=== PATIENT | female | born 1960 | race Caucasian/White ===

== ENCOUNTER 2017-01-11 09:22 | Emergency (ER) | payer MEDICARE, MEDICAID ==
[~2017-01-11] VITALS: Ht 160 cm; Wt 50.0 kg
[~2017-01-11 09:22] MED LIST: BL ADULT ASA81 MG PO; LORTAB5 OR; NO HOME MEDS; ONDANSETRON4 MG OR; ZOFRAN4 MG/TAB PO
[2017-01-11 11:26] VITALS: BP 171/81
== END 2017-01-11 11:33 | disposition home or self-care (01) ==
LOC: ED 09:22
DX: S00.83XA Contusion of other part of head, initial encounter (principal); M06.9 Rheumatoid arthritis, unspecified; G35 Multiple sclerosis; B19.20 Unspecified viral hepatitis C without hepatic coma; I25.10 Atherosclerotic heart disease of native coronary artery without angina pectoris; I25.2 Old myocardial infarction; F17.210 Nicotine dependence, cigarettes, uncomplicated; W22.8XXA Striking against or struck by other objects, initial encounter; Y92.512 Supermarket, store or market as the place of occurrence of the external cause

== ENCOUNTER 2017-07-13 19:58 | Emergency (ER) | payer MEDICARE, MEDICAID ==
[~2017-07-13] VITALS: Ht 160 cm; Wt 55.0 kg
[2017-07-13 20:51] LABS: HEMATOCRIT 34.6 % (37.0-47.0); HEMOGLOBIN 11.3 g/dl (12.0-16.0); IMMATURE GRANULOCYTES 0.4 % (0.0-1.0); MEAN CORPUSCULAR HGB 21.6 pG CALC (26.0-32.0); MEAN CORPUSCULAR HGB CONC 32.7 g/L CALC (32.0-36.0); NEUT# 4.98 thou/uL (2.00-7.15); RED BLOOD COUNT 5.24 mill/uL (4.20-5.60); RED CELL DISTRI WIDTH 15.8 % (11.5-15.5)
[2017-07-13 20:53] LABS: URINE BILIRUBIN - DIPSTICK NEGATIVE (NEGATIVE); URINE BLOOD DIPSTICK NEGATIVE (NEGATIVE); URINE COLOR YELLOW; URINE GLUCOSE - DIPSTICK NEGATIVE (NEGATIVE); URINE KETONE NEGATIVE (NEGATIVE); URINE LEUK ESTERASE NEGATIVE (NEGATIVE); URINE NITRITE - DIPSTICK NEGATIVE (Negative); URINE PROTEIN - DIPSTICK NEGATIVE (NEG-TRACE); URINE SPECIFIC GRAVITY <=1.005; URINE UROBILINOGEN - DIPSTICK 0.2 E.U./dL (0.2)
[2017-07-13 21:12] LABS: URINE CLARITY CLEAR
[2017-07-13 21:36] LABS: ALBUMIN 4.8 g/dL (3.2-5.0); ALKALINE PHOSPHATASE 87 u/l (38-126); AMYLASE 66 u/l (30-110); BILIRUBIN, TOTAL 0.7 mg/dL (0.0-1.4); BUN 12 mg/dL (7-17); BUN/CREATININE RATIO 18 (12-20 (CALC)); CALCIUM 9.9 mg/dL (8.4-10.2); CARBON DIOXIDE 25 mmol/l (22-30); CHLORIDE 105 mmol/l (95-108); CREATININE 0.7 mg/dL (0.5-1.0); GFR > 60 ML/MIN (>=60 (CALC)); GFR FOR AFR.AMER. > 60 ML/MIN (>=60 (CALC)); GLUCOSE 107 mg/dL (65-105); LIPASE 68 u/l (23-300); SGOT/AST 24 u/l (14-36); SGPT/ALT 24 u/l (9-52); SODIUM 140 mmol/l (137-146); TOTAL PROTEIN 8.1 g/dL (6.3-8.2)
[2017-07-13 21:37] LABS: ANION GAP 14 (6-22 (CALC))
[2017-07-13 21:47] LABS: MYOGLOBIN 32 ng/mL (0 - 62)
[2017-07-14] MEDS ORDERED: ULTRAM50 M1 PO (00:14)
[2017-07-14 00:46] VITALS: BP 148/72
== END 2017-07-14 00:43 | disposition home or self-care (01) ==
LOC: ED 19:58
PROVIDERS: Emergency Medicine
DX: R10.11 Right upper quadrant pain (principal); K44.9 Diaphragmatic hernia without obstruction or gangrene; M25.511 Pain in right shoulder
CPT/HCPCS: Q9967

== ENCOUNTER 2019-10-20 | Emergency (ER) | payer MEDICARE, MEDICAID ==
[~2019-10-20] MED LIST changes: +ASPIRIN 8181 MG PO; -BL ADULT ASA81 MG PO; +ULTRAM50 M1 PO
== END 2019-10-20 12:30 | disposition home or self-care (01) ==
DX: S90.31XA Contusion of right foot, initial encounter (principal); I10 Essential (primary) hypertension; W18.39XA Other fall on same level, initial encounter; Y92.003 Bedroom of unspecified non-institutional (private) residence as the place of occurrence of the external cause

== ENCOUNTER 2020-10-07 12:37 | Observation (INO) | payer MEDICARE, MEDICAID ==
[~2020-10-07] VITALS: Ht 160 cm; Wt 65.0 kg
[2020-10-07] VITALS (13 sets, daily range): BP systolic 96–157; BP diastolic 61–106
[2020-10-07 13:09] LABS: GFR > 60 ML/MIN (>=60 (CALC)); GFR FOR AFR.AMER. > 60 ML/MIN (>=60 (CALC))
[2020-10-07 13:10] LABS: HEMATOCRIT 34.8 % (37.0-47.0); HEMOGLOBIN 10.9 g/dl (12.0-16.0); IMMATURE GRANULOCYTES 0.5 % (0.0-5.0); MEAN CELL VOLUME 66.8 fL CALC (80.0-100.0); MEAN CORPUSCULAR HGB 20.9 pG CALC (26.0-32.0); MEAN CORPUSCULAR HGB CONC 31.3 g/dL CAL (32.0-36.0); NEUT# 10.23 thou/uL (2.00-7.15); RED BLOOD COUNT 5.21 mill/uL (4.20-5.60); RED CELL DISTRI WIDTH 17.1 % (11.5-15.5)
[2020-10-07 13:22] LABS: ALBUMIN 4.4 g/dL (3.2-5.0); ALKALINE PHOSPHATASE 73 u/l (38-126); ANION GAP 14 (6-22 (CALC)); BILIRUBIN, TOTAL 0.7 mg/dL (0.0-1.4); BUN 17 mg/dL (7-17); BUN/CREATININE RATIO 26 (12-20 (CALC)); CARBON DIOXIDE 22 mmol/l (22-30); CHLORIDE 101 mmol/l (95-108); CREATININE 0.7 mg/dL (0.5-1.0); GFR > 60 ML/MIN (>=60 (CALC)); GFR FOR AFR.AMER. > 60 ML/MIN (>=60 (CALC)); POTASSIUM 3.7 mmol/l (3.5-5.1); SGOT/AST 29 u/l (14-36); SODIUM 133 mmol/l (137-146); TOTAL PROTEIN 7.6 g/dL (6.3-8.2)
[2020-10-07 13:30] LABS: ACT PARTIAL THROMBO TIME 21.4 SECONDS (20.0-32.5); PROTHROMBIN TIME 10.1 SECONDS (9.0-12.5)
[2020-10-07 15:59] LABS: URINE BILIRUBIN - DIPSTICK NEGATIVE (NEGATIVE); URINE BLOOD DIPSTICK NEGATIVE (NEGATIVE); URINE COLOR YELLOW; URINE GLUCOSE - DIPSTICK NEGATIVE (NEGATIVE); URINE KETONE NEGATIVE (NEGATIVE); URINE LEUK ESTERASE NEGATIVE (NEGATIVE); URINE NITRITE - DIPSTICK NEGATIVE (Negative); URINE PROTEIN - DIPSTICK NEGATIVE (NEG-TRACE); URINE SPECIFIC GRAVITY <=1.005; URINE UROBILINOGEN - DIPSTICK 0.2 E.U./dL (0.2)
[2020-10-08] VITALS (8 sets, daily range): BP systolic 93–116; BP diastolic 56–70
[2020-10-08 06:00] LABS: HEMATOCRIT 32.6 % (37.0-47.0); HEMOGLOBIN 10.2 g/dl (12.0-16.0); IMMATURE GRANULOCYTES 0.4 % (0.0-5.0); MEAN CELL VOLUME 66.8 fL CALC (80.0-100.0); MEAN CORPUSCULAR HGB 20.9 pG CALC (26.0-32.0); MEAN CORPUSCULAR HGB CONC 31.3 g/dL CAL (32.0-36.0); NEUT# 6.15 thou/uL (2.00-7.15); RED BLOOD COUNT 4.88 mill/uL (4.20-5.60); RED CELL DISTRI WIDTH 16.4 % (11.5-15.5)
[2020-10-08 06:08] LABS: ALBUMIN 3.7 g/dL (3.2-5.0); ALKALINE PHOSPHATASE 67 u/l (38-126); ANION GAP 11 (6-22 (CALC)); BILIRUBIN, TOTAL 0.7 mg/dL (0.0-1.4); BUN 10 mg/dL (7-17); BUN/CREATININE RATIO 16 (12-20 (CALC)); CALCULATED LDLCHOLESTEROL 85 mg/dL (62-129 (CALC)); CARBON DIOXIDE 25 mmol/l (22-30); CHLORIDE 104 mmol/l (95-108); CHOLESTEROL HDL RATIO 3.5 (<4.4 (CALC)); CREATININE 0.6 mg/dL (0.5-1.0); GFR > 60 ML/MIN (>=60 (CALC)); GFR FOR AFR.AMER. > 60 ML/MIN (>=60 (CALC)); HDL CHOLESTEROL 45 mg/dL (>=40); MAGNESIUM 2.3 mg/dL (1.6-2.3); POTASSIUM 3.9 mmol/l (3.5-5.1); SGOT/AST 19 u/l (14-36); SODIUM 135 mmol/l (137-146); TOTAL CHOLESTEROL 156 mg/dl (0-199); TOTAL PROTEIN 6.4 g/dL (6.3-8.2); TOTAL TRIGLYCERIDES 130 mg/dl (30-149); VLDL CHOLESTROL 26 mg/dl (1-41 (CALC))
== END 2020-10-08 11:30 | disposition home or self-care (01) ==
LOC: ED 12:37 → ED-I 13:40 → ED 13:51 → ICU 13:52
PROVIDERS: Nurse Practitioner; Student in an Organized Health Care Education/Training Program; ADMIT Internal Medicine; ATTEND Internal Medicine
DX: R42 Dizziness and giddiness (principal); G35 Multiple sclerosis; I10 Essential (primary) hypertension; G93.89 Other specified disorders of brain; M19.90 Unspecified osteoarthritis, unspecified site; D64.9 Anemia, unspecified; Z86.19 Personal history of other infectious and parasitic diseases; Z85.43 Personal history of malignant neoplasm of ovary; Z20.822 Contact with and (suspected) exposure to COVID-19
CPT/HCPCS: J1650; Q9967

== ENCOUNTER 2021-05-01 16:47 | Emergency (ER) | payer MEDICARE, MEDICAID ==
[~2021-05-01] VITALS: Ht 157.5 cm; Wt 58.6 kg
[2021-05-01 18:05] LABS: HEMATOCRIT 38.1 % (37.0-47.0); HEMOGLOBIN 12.3 g/dl (12.0-16.0); IMMATURE GRANULOCYTES 0.1 % (0.0-5.0); MEAN CELL VOLUME 67.8 fL CALC (80.0-100.0); MEAN CORPUSCULAR HGB 21.9 pG CALC (26.0-32.0); MEAN CORPUSCULAR HGB CONC 32.3 g/dL CAL (32.0-36.0); NEUT# 3.93 thou/uL (2.00-7.15); RED BLOOD COUNT 5.62 mill/uL (4.20-5.60); RED CELL DISTRI WIDTH 17.2 % (11.5-15.5)
[2021-05-01 18:06] LABS: URINE BILIRUBIN - DIPSTICK NEGATIVE (NEGATIVE); URINE BLOOD DIPSTICK NEGATIVE (NEGATIVE); URINE COLOR YELLOW; URINE GLUCOSE - DIPSTICK NEGATIVE (NEGATIVE); URINE KETONE NEGATIVE (NEGATIVE); URINE LEUK ESTERASE NEGATIVE (NEGATIVE); URINE PH 6.5 (4.5-8.0); URINE PROTEIN - DIPSTICK NEGATIVE (NEG-TRACE); URINE SPECIFIC GRAVITY <=1.005; URINE UROBILINOGEN - DIPSTICK 0.2 E.U./dL (0.2)
[2021-05-01 18:10] LABS: URINE NITRITE - DIPSTICK NEGATIVE (Negative)
[2021-05-01 18:21] LABS: ALKALINE PHOSPHATASE 78 u/l (38-126); AMYLASE 83 u/l (30-110); ANION GAP 13 (6-22 (CALC)); BUN 14 mg/dL (7-17); BUN/CREATININE RATIO 19 (12-20 (CALC)); CARBON DIOXIDE 28 mmol/l (22-30); CHLORIDE 101 mmol/l (95-108); CREATININE 0.8 mg/dL (0.5-1.0); GFR > 60 ML/MIN (>=60 (CALC)); GFR FOR AFR.AMER. > 60 ML/MIN (>=60 (CALC)); LIPASE 84 u/l (23-300); POTASSIUM 3.7 mmol/l (3.5-5.1); SGOT/AST 25 u/l (14-36); SODIUM 138 mmol/l (137-146)
[2021-05-01 18:22] LABS: ALBUMIN 4.8 g/dL (3.2-5.0); BILIRUBIN, TOTAL 0.4 mg/dL (0.0-1.4); TOTAL PROTEIN 8.7 g/dL (6.3-8.2)
[2021-05-01 18:33] LABS: MYOGLOBIN 23 ng/mL (0 - 62)
[2021-05-01 19:51] VITALS: BP 138/78
[2021-06-22] MEDS ORDERED: CURCUMIN PO (10:42)
[2021-06-22] MEDS ORDERED: PAPAYA ENZY PO (10:43)
== END 2021-05-01 19:56 | disposition home or self-care (01) ==
LOC: ED 16:47
PROVIDERS: Emergency Medicine
DX: R10.9 Unspecified abdominal pain (principal); G35 Multiple sclerosis; I25.2 Old myocardial infarction; B19.20 Unspecified viral hepatitis C without hepatic coma; F17.200 Nicotine dependence, unspecified, uncomplicated; Z85.43 Personal history of malignant neoplasm of ovary; Z20.822 Contact with and (suspected) exposure to COVID-19
CPT/HCPCS: Q9967

== ENCOUNTER 2023-02-25 08:09 | Emergency (ER) | payer MEDICARE, MEDICAID ==
[~2023-02-25] VITALS: Ht 157.5 cm; Wt 61.0 kg
[~2023-02-25 08:09] MED LIST changes: +CURCUMIN PO; +PAPAYA ENZY PO
[2023-02-25 08:16] VITALS: BP 146/86
[2023-02-25 08:30] VITALS: BP 133/85
[2023-02-25 08:49] LABS: BASO% 1.2 % (0-3); EOS% 2.6 % (0-8); HEMATOCRIT 35.6 % (37.0-47.0); HEMOGLOBIN 11.5 g/dl (12.0-16.0); IMMATURE GRANULOCYTES 0.3 % (0.0-5.0); LYMPH% 26.5 % (15-41); MEAN CELL VOLUME 66.5 fL CALC (80.0-100.0); MEAN CORPUSCULAR HGB 21.5 pG CALC (26.0-32.0); MEAN CORPUSCULAR HGB CONC 32.3 g/dL CAL (32.0-36.0); MONO% 7.6 % (2-13); NEUT# 4.08 thou/uL (2.00-7.15); NEUT% 61.8 % (42-76); RED BLOOD COUNT 5.35 mill/uL (4.20-5.60); RED CELL DISTRI WIDTH 16.5 % (11.5-15.5)
[2023-02-25 09:00] VITALS: BP 131/83
[2023-02-25 09:08] LABS: ALBUMIN 4.7 g/dL (3.2-5.0); ALKALINE PHOSPHATASE 92 u/l (38-126); ANION GAP 14 (6-22 (CALC)); BILIRUBIN, TOTAL 0.5 mg/dL (0.02-1.3); BUN 15 mg/dL (8-23); BUN/CREATININE RATIO 21 (12-20 (CALC)); CARBON DIOXIDE 23 mmol/l (22-30); CHLORIDE 105 mmol/l (95-108); CREATININE 0.7 mg/dL (0.5-1.0); GFR FOR AFR.AMER. > 60 ML/MIN (>=60 (CALC)); GFR OTHER RACES > 60 ML/MIN (>=60 (CALC)); POTASSIUM 3.8 mmol/l (3.5-5.1); SGOT/AST 27 u/l (9-36); SODIUM 138 mmol/l (137-146)
[2023-02-25 09:30] VITALS: BP 134/90
[2023-02-25 10:00] VITALS: BP 136/109
[2023-02-25 10:30] VITALS: BP 136/109
== END 2023-02-25 10:20 | disposition left against medical advice (07) ==
LOC: ED 08:09
PROVIDERS: Family Medicine
DX: R07.9 Chest pain, unspecified (principal); G35 Multiple sclerosis; I25.2 Old myocardial infarction; F17.210 Nicotine dependence, cigarettes, uncomplicated; Z53.29 Procedure and treatment not carried out because of patient's decision for other reasons

== ENCOUNTER 2024-05-26 20:58 | Emergency (ER) | payer MEDICARE, MEDICAID ==
[~2024-05-26] VITALS: Ht 157.5 cm; Wt 51.0 kg
[~2024-05-26 20:58] MED LIST changes: +FUROSEMIDE20 MG PO; +IS-ZC 50 50 MG1 TAB; +VITAMIN D-32000 UNI1; +[UNRECOGNIZED DRUG - OTHER]; +[UNRECOGNIZED DRUG - OTHER]
[2024-05-26] MEDS ORDERED: SODIUM CHLORIDE 0.9% 1,000 ML IV STA (21:12)
[2024-05-26] MEDS ORDERED: PROMETHAZINE HCL 25 MG/ML AMP IV ONE (21:15)
[2024-05-26] MEDS ORDERED: HYDROcodone POLISTIREX/CHLORPH 5 ML UDC PO ONE (21:15)
[2024-05-26 21:35] LABS: BASO% 0.4 % (0-3); EOS% 0.8 % (0-8); HEMATOCRIT 33.4 % (37.0-47.0); IMMATURE GRANULOCYTES 0.2 % (0.0-5.0); LYMPH% 12.2 % (15-41); MEAN CELL VOLUME 66.4 fL CALC (80.0-100.0); MEAN CORPUSCULAR HGB 21.9 pG CALC (26.0-32.0); MEAN CORPUSCULAR HGB CONC 32.9 g/dL CAL (32.0-36.0); MONO% 5.6 % (2-13); NEUT# 11.43 thou/uL (2.00-7.15); NEUT% 80.8 % (42-76); RED BLOOD COUNT 5.03 mill/uL (4.20-5.60); RED CELL DISTRI WIDTH 16.6 % (11.5-15.5)
[2024-05-26 21:43] LABS: ALBUMIN 4.4 g/dL (3.2-5.0); BILIRUBIN, TOTAL 0.6 mg/dL (0.02-1.3); CREATININE 0.6 mg/dL (0.5-1.0); TOTAL PROTEIN 7.4 g/dL (6.3-8.2)
[2024-05-26 21:44] LABS: POTASSIUM 3.5 mmol/l (3.5-5.1)
[2024-05-26 22:53] LABS: URINE BILIRUBIN - DIPSTICK Negative (NEGATIVE); URINE BLOOD DIPSTICK Trace-intact (NEGATIVE); URINE GLUCOSE - DIPSTICK Negative (NEGATIVE); URINE KETONE Negative (NEGATIVE); URINE LEUK ESTERASE Negative (NEGATIVE); URINE NITRITE - DIPSTICK Negative (Negative); URINE PH 5.5 (4.5-8.0); URINE PROTEIN - DIPSTICK Negative (NEG-TRACE); URINE UROBILINOGEN - DIPSTICK 0.2 E.U./dL (0.2)
[2024-05-26 22:55] LABS: URINE COLOR Yellow
[2024-05-26] MEDS ORDERED: AZITHROMYCIN 300mg/15mL BTL (100mg/5mL) PO ONE (23:10)
[2024-05-26] MEDS ORDERED: AZITHROMYC200 MG/5 M PO (23:11)
[2024-05-26 23:16] VITALS: BP 145/94
[2024-05-26] MEDS ORDERED: AZITHROMYCIN 250 MG/TAB PO ONE (23:30)
== END 2024-05-26 23:48 | disposition home or self-care (01) ==
LOC: ED 20:58
PROVIDERS: Family Medicine
DX: J20.9 Acute bronchitis, unspecified (principal); R11.2 Nausea with vomiting, unspecified; F17.210 Nicotine dependence, cigarettes, uncomplicated; Z20.822 Contact with and (suspected) exposure to COVID-19

== ENCOUNTER 2024-09-11 10:32 | Emergency (ER) | payer MEDICARE, MEDICAID ==
[~2024-09-11] VITALS: Ht 157.5 cm; Wt 54.4 kg
[~2024-09-11 10:32] MED LIST changes: +AZITHROMYC200 MG/5 M PO
[2024-09-11 12:32] VITALS: BP 162/90
[2024-09-11 12:51] VITALS: BP 153/84
[2024-09-11 13:01] VITALS: BP 127/77
[2024-09-11 13:03] LABS: BASO% 0.7 % (0-3); EOS% 2.2 % (0-8); HEMATOCRIT 35.2 % (37.0-47.0); HEMOGLOBIN 11.4 g/dl (12.0-16.0); IMMATURE GRANULOCYTES 0.3 % (0.0-5.0); LYMPH% 26.7 % (15-41); MEAN CELL VOLUME 65.4 fL CALC (80.0-100.0); MEAN CORPUSCULAR HGB 21.2 pG CALC (26.0-32.0); MEAN CORPUSCULAR HGB CONC 32.4 g/dL CAL (32.0-36.0); MONO% 8.8 % (2-13); NEUT# 5.79 thou/uL (2.00-7.15); NEUT% 61.3 % (42-76); RED BLOOD COUNT 5.38 mill/uL (4.20-5.60); RED CELL DISTRI WIDTH 16.3 % (11.5-15.5)
[2024-09-11 13:15] VITALS: BP 120/80
[2024-09-11 13:17] LABS: ALBUMIN 5.1 g/dL (3.2-5.0); BILIRUBIN, TOTAL 0.8 mg/dL (0.02-1.3); C-REACTIVE PROTEIN 0.6 mg/dL (0-0.9); CREATININE 0.7 mg/dL (0.5-1.0); POTASSIUM 4.6 mmol/l (3.5-5.1); TOTAL PROTEIN 8.4 g/dL (6.3-8.2)
[2024-09-11] MEDS ORDERED: traMADol HCL 50 MG/TAB PO ONE (14:45)
[2024-09-11] MEDS ORDERED: KETOROLAC TROMETHAMINE 30 MG/ML SDV IV ONE (14:45)
[2024-09-11] MEDS ORDERED: BACTRIM DS1 TAB PO (15:05)
[2024-09-11] MEDS ORDERED: TRAMADOL HYDROC50 M1 PO (15:05)
[2024-09-11 15:48] VITALS: BP 120/80
== END 2024-09-11 15:48 | disposition home or self-care (01) ==
LOC: ED 10:32
PROVIDERS: Nurse Practitioner
DX: L72.9 Follicular cyst of the skin and subcutaneous tissue, unspecified (principal); F17.200 Nicotine dependence, unspecified, uncomplicated